=== PATIENT | male | born 1960 | race Caucasian/White ===

== ENCOUNTER 2021-12-24 07:55 | Day surgery (SDC) | payer OTHER, SELFPAY ==
--- NOTE | 2021-12-24 | PATH_ITS ---
[facility] Accession Number: [id number] . 01 Material submitted: . colon - RECTUM/SIGMOID COLON POLYP . 02 Diagnosis: Rectum/Sigmoid Colon Polyp: Portion of tubular adenoma x1. Portion of hyperplastic polyp x1. MRV 12/27/2021 1343 Local . 02 Electronically signed: . Xiomara Ellsworth MD, Pathologist NPI- [id number] . 01 Gross description: . RECTUM/SIGMOID COLON POLYP: Received in formalin are 2 fragment(s) of grimes, soft tissue measuring 0.2 x 0.1 x 0.1 cm to 0.2 x 0.1 x 0.1 cm submitted entirely in 1 cassette(s) /CPE 12/25/2021 0622 Local . 02 Pathologist provided ICD-10: Z12.11, D64.9, K63.5 . 02 CPT . 647018 Specimen Comment: A courtesy copy of this report has been sent to [phone] Performed at: [address] [facility] Cytology [address] [facility], [place], [place] [id number] MD Ethan Chavarria MD Phone: [phone] Performed at: 02 [facility] [address] [place], [place] [id number] MD Antonia Ramesh MD Phone: [phone]
--- NOTE | 2021-12-24 08:08 | SUR.PREOP ---
0745-patient called-late arrival -on way 10 minutes away. Endo Team notified.
[2021-12-24 08:13] VITALS: BMI 30.5
[2021-12-24 08:18] VITALS: BP 134/88; PULSE 78; RESP 16; TEMP 36.5; O2SAT 97
[2021-12-24] MEDS: SODIUM CHLORIDE 0.9% 1,000 ML 84 ML IV (08:25)
[2021-12-24 08:40] LABS: COVID19 -Nasal RAPID Negative (Negative)
--- NOTE | 2021-12-24 08:53 | PM.HP.1 ---
History of Present Illness History of Present Illness Date Patient Seen: 12/24/21 Time Patient Seen: 08:54 Chief complaint: SDC Narrative: I reviewed my office note from November 13. No changes. Patient History Medical History Anemia Hypertension Surgical History H/O knee surgery Family & Social History Social History: household members spouse Tobacco & Substance use: Smoking Status Former smoker alcohol intake current alcohol intake frequency 0-2 drinks per day Substance Use Type does not use Meds Home Medications and Allergies Home Medications Medication Instructions Recorded Confirmed Type losartan 1 tab PO DAILY 12/21/21 12/24/21 History Allergies Allergy/AdvReac Type Severity Reaction Status Date / Time No Known Drug Allergies Allergy Verified 12/24/21 08:11 Review of Systems Review of Systems ROS: Yes All systems reviewed with the patient and are negative except as otherwise documented Exam Vital Signs (past 8 hours): - 12/24/21 08:18 Temperature 97.7 F Pulse Rate 78 Respiratory Rate 16 Blood Pressure 134/88 Pulse Oximetry 97 Oxygen Delivery Method Room Air Const General: cooperative and comfortable Orientation: alert HENMT Head: normocephalic Ears: external ears normal Nose: external nose normal Face and sinus: normal facial exam Mouth: oral mucosae normal Eyes General: appearance normal, both eyes and all related structures Neck Neck: normal visual inspection Chest Chest: normal inspection of the chest Resp Effort & Inspection: normal respiratory effort Cardio Rate: regular rate GI Inspection: normal to inspection Skin General: no rashes or lesions noted and No jaundice Neuro General: patient alert and moves all extremities Cognition: normal cognition Speech: speech normal Extrem General: no pedal edema Psych Appearance: grossly normal Objective Labs Labs: Laboratory Results - last 24 hr 12/24/21 08:05 SARS-CoV-2 (PCR) Negative Assessment & Plan Assessment & Plan narrative: 61-year-old male indicated for colon cancer screening. Colonoscopy is pursued today. Time Spent With Patient Critical Care time: I spent a total of [] minutes of critical care time on this patient's care today; this time is exclusive of procedural time.
--- NOTE | 2021-12-24 08:55 | PM.PREOP ---
Pre-operative Note COVID-19 COVID-19 status: Negative Result date/Date tested (Pos, Neg/Pending): 12/21/21 Criteria for continued procedure: Possibility delay results in more complex future surgery or treatment Interval Note History & Physical reviewed/Exam performed by Physician: Yes Changes to H&P: No ASA Class (for procedural sedation): II
--- NOTE | 2021-12-24 09:18 | P.OP.COLON_ITS ---
Operative Date/Time/Diagnoses Date of procedure: 12/24/21 Time of procedure: 09:19 Pre-op diagnosis: Colon cancer screening Post-op diagnosis: same Procedure & Clinicians Study performed: Colonoscopy with cold forceps polypectomy Same procedure as scheduled: Yes Indications: Colon cancer screening Surgeon: Víctor Hoang Procedure Notes SCOAP/Timeout: Done Procedure in detail: After the risks and benefits were explained, written and verbal informed consent was obtained. The patient was brought into the procedure room and placed into the left lateral decubitus position. Please see nurse credit union teller notes for sedation details. Digital rectal examination was accomplished. The scope was introduced into the patient and advanced under direct visualization to the cecum as identified by the appendiceal orifice and ileocecal valve. The scope was slowly withdrawn to carefully examine the mucosa for any defects or lesions. Comprehensive imaging was accomplished throughout the rectum including the dentate line. The colon was decompressed, the scope was then removed from the patient who tolerated the procedure well. Adult colonoscope Bowel prep adequate Scope withdrawal time: 10 minutes Sedation minutes: 16 Complications: none Impression: There was some mild diverticulosis noted. The patient had a diminutive polyp in the rectosigmoid region removed with cold forceps. No significant additional pathology was appreciated throughout Endoscopic diagnosis 1. Scant diverticulosis 2. Small colon polyp Post-procedure Plan for aftercare: 1. Await histopathology 2. Surveillance colonoscopy timing will be contingent on histopathologic findings. Disposition: PACU
[2021-12-24 09:25] VITALS: BP 96/72; PULSE 79; RESP 16; TEMP 36.1; O2SAT 97
[2021-12-24 09:28] VITALS: BP 106/75; PULSE 77; RESP 16; O2SAT 98
[2021-12-24 09:32] VITALS: BP 119/78; PULSE 68; RESP 16; TEMP 36.8; O2SAT 98
== END 2021-12-24 09:42 | disposition home or self-care (01) ==
PROVIDERS: PCP Family Medicine; Referring Provider Internal Medicine Gastroenterology; Visit Provider Internal Medicine Gastroenterology
PROC: 0DJD8ZZ Inspection of Lower Intestinal Tract, Via Natural or Artificial Opening Endoscopic (ICD-10-PCS; CPT 45378; principal; 2021-12-24 09:00)
DX: Z12.11 Encounter for screening for malignant neoplasm of colon (principal); Z20.822 Contact with and (suspected) exposure to COVID-19; K57.30 Diverticulosis of large intestine without perforation or abscess without bleeding
CPT/HCPCS: 45380; 87635; C9803; J2704

== ENCOUNTER → 2023-04-24 09:53 | Outpatient (CLI) | payer OTHER, SELFPAY ==
--- NOTE | 2023-04-24 09:55 | DI.RAD.S_ITS ---
PROCEDURE: XR HAND RT MIN 3V INDICATIONS: Right hand injury TECHNIQUE: Wall 3 views of the hand(s) acquired. COMPARISON: None. 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 Overlapping osseous structures limits evaluation. There is a possible lucency which appears well corticated and favored to represent overlapping structures. Carpal bones are normally aligned. No suspicious bony lesions. Severe osteoarthritic changes of the 1st carpometacarpal joint. Soft tissues: No suspicious soft tissue calcifications. Atherosclerotic vascular calcifications. 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 No definite fracture is seen. Consider repeat radiographs in 7-10 days for further evaluation. Dictated by: Angel Handley M.D. on 04/24/2023 at 11:53 Approved by: Angel Handley M.D. on 04/24/2023 at 11:57
== END ==
PROVIDERS: PCP Family Medicine; Referring Provider Nurse Practitioner Family; Visit Provider Nurse Practitioner Family
DX: S60.221A Contusion of right hand, initial encounter (principal); X58.XXXA Exposure to other specified factors, initial encounter
CPT/HCPCS: 73130